=== PATIENT | female | born 1935 | race Caucasian/White ===

== ENCOUNTER → 2018-08-14 | Outpatient (CLI) | payer MEDICARE ==
--- NOTE | 2018-08-14 15:10 | US ---
LOWER EXTREMITY VENOUS INSUFFICIENCY SIDE PERFORMED: Bilateral Comparison: Prior bilateral venous ultrasound March 17, 2015 1) Color flow is present and patency is documented in the following vessels. No DVT or SVT is noted . EIV Common Femoral Vein Deep Femoral Vein Femoral Vein Popliteal Vein Proximal Calf Veins-no Greater Saph Vein Upper Small Saph Vein 2) There is venous reflux noted at the following venous levels: Right EIV, CFV IMPRESSION: No ultrasound evidence for acute DVT in either lower extremity. Some right-sided venous r eflux noted during real-time scanning.
--- NOTE | 2018-08-16 14:37 | P.ARTDOP ---
Arterial Doppler LOWER EXTREMITY ARTERIAL DOPPLER: DATE OF SERVICE: 08/14/2018 Reason for study: Right leg ulcer. Doppler waveforms: Multiphasic bilaterally throughout. Pulse volume recording: Normal configuration. Pressure gradients: None. Ankle-brachial indices: Greater than 1 bilaterally. Toe pressures: [] on the right, [] on the left Impression: Normal study. Significantly elevated ankle pressures may be related to calcific wall disease. It does not appear to be hemodynamically significant..
== END | disposition home or self-care (01) ==
LOC: RADUSWWP 12:41
PROVIDERS: ATTEND Nurse Practitioner Family
DX: I87.2 Venous insufficiency (chronic) (peripheral) (principal); M79.605 Pain in left leg
CPT/HCPCS: 93923; 93970